=== PATIENT | male | born 1965 | race Two or more races ===

== ENCOUNTER 2018-05-15 11:00 | Outpatient (CLI) | payer OTHER ==
[2018-05-15 12:14] LABS: FOLATE 21.13 ng/mL (5.90 - >24.8)
== END 2018-05-15 11:01 | disposition home or self-care (01) ==
LOC: LAB 11:00
PROVIDERS: ATTEND Internal Medicine
DX: R53.83 Other fatigue (principal); N52.9 Male erectile dysfunction, unspecified; D50.9 Iron deficiency anemia, unspecified
CPT/HCPCS: 36415; 81599; 82607; 82627; 82746; 82977

== ENCOUNTER 2018-05-17 08:01 | Outpatient (CLI) | payer OTHER | END 2018-05-17 08:02 | disposition home or self-care (01) | LOC: LAB 08:01 | PROVIDERS: ATTEND Internal Medicine | DX: R53.83 Other fatigue (principal); N52.9 Male erectile dysfunction, unspecified; D50.9 Iron deficiency anemia, unspecified | CPT/HCPCS: 36415; 82533 ==

== ENCOUNTER 2018-05-29 10:00 | Outpatient (CLI) | payer OTHER ==
--- NOTE | 2018-05-29 13:16 | CARDIAC PROCEDURE NOTE ---
author redictated complete report - incomplete dictation here should not have been subbed. canceled 05/29/18 1:33pm [facility] DATE OF SERVICE: 05/29/2018 Physician: Luisa Gonzalez MD PROCEDURE: Exercise Cardiolite. PROTOCOL: Ty. TIME: 11 minutes. METS: 13.48. BLOOD PRESSURE RESPONSE: Resting 120/70 to maximum 170/66. HEART RATE RESPONSE: Dictation ends here TD: 05/29/2018 13:08 [facility]
--- NOTE | 2018-05-29 13:19 | CARDIAC PROCEDURE NOTE ---
DATE OF SERVICE: 05/29/2018 Physician: Luisa Gonzalez MD PROCEDURE: Exercise Cardiolite. PROTOCOL: Ty. TIME: 11 minutes 1 second. METS: 13.48. BLOOD PRESSURE RESPONSE: 120/70 at rest to maximum 170/66. HEART RATE RESPONSE: Rest at 55 to maximum 162, which was 97% of the maximum predicted. REASON FOR STOPPING TEST: The patient had exceeded the target heart rate and had exercised for 1 min agdaagux after injection. He said he could have kept going. SYMPTOMS: None. ST-SEGMENT RESPONSE: No significant ST elevations or depressions. ARRHYTHMIAS: Occasional PVC. IMPRESSION: No symptoms. No significant EKG changes. CONCLUSION: Await Cardiolite portion of test. TD: 05/29/2018 13:10
--- NOTE | 2018-05-29 16:40 | Nuclear Medicine Report ---
Reason: CHEST PAIN Procedure Date: 05/29/2018 Accession Number: [id number] / [id number] Procedure: NM - Myocardial Perfusion STR/RST CPT Code: FULL RESULT: EXAM: SINGLE-ISOTOPE EXERCISE STRESS TEST. SINGLE-ISOTOPE AND ONE-DAY REST/STRESS MYOCARDIAL PERFUSION SCANS WITH TOMOGRAPHIC IMAGING, QUANTITATIVE ANALYSIS, WALL MOTION ANALYSIS AND CALCULATION OF EJECTION FRACTION. EXAM DATE: 05/29/2018 02:09 PM. CLINICAL HISTORY: CHEST PAIN. COMPARISON: None. TECHNIQUE: A rest myocardial perfusion scan was done with tomography after the intravenous administration of 10.8 mCi Tc-99m sestamibi. After an appropriate delay, a treadmill exercise stress was performed according to department protocol. The patient exercised for 11 minutes and 1 seconds. The maximum heart rate was 162 bpm, which was 97% of the maximum predicted heart rate of 167 bpm. At approximately peak heart rate, 43.0 mCi of Tc-99m sestamibi was injected for stress myocardial perfusion scan. Motion correction was applied when appropriate. Gated tomographic images were obtained for wall motion analysis and computation of left ventricular ejection fraction. FINDINGS: Perfusion images: Left ventricular chamber size appears normal at rest and unchanged at stress. There is a moderate size, mild to moderate severity perfusion deficit involving the apical half of the anteroseptal wall and apical aspect of the anterior wall which appears largely fixed. There is an apparent small area of mild reversibility at the mid anteroseptal wall. No other convincing reversible perfusion deficits. SSS 6, SRS 4, SDS 2. Gated images: No convincing focal wall motion abnormality. Calculated left ventricular EDV 92 mL, ESV 20 mL. The left ventricular ejection fraction is estimated at 79% (normal > 50%). IMPRESSION: 1. Moderate size, mild to moderate severity apical half anteroseptal wall perfusion deficit appears largely fixed. There is an apparent small area of mild reversibility at the mid anteroseptal wall that may reflect stress-induced ischemia. 2. Left ventricular ejection fraction of 79% (normal > 50%). RADIA
== END 2018-05-29 10:01 | disposition home or self-care (01) ==
LOC: DI 10:00
PROVIDERS: ATTEND Nurse Practitioner Family
DX: R07.9 Chest pain, unspecified (principal)
CPT/HCPCS: 78452; 93017; A9500

== ENCOUNTER 2019-12-26 07:05 | Emergency (ER) | payer OTHER ==
[2019-12-26 07:23] VITALS: BP 127/84
--- NOTE | 2019-12-26 07:33 | ED Physician Documentation ---
PD HPI ABD PAIN - Stated complaint Stated Complaint: BACK PX/UPPER ABD PX - Chief complaint Chief Complaint: Abd Pain - History obtained from History obtained from: Patient - Additional information Additional information: 54-year-old gentleman developed a backache in the center of the back last night which subsequently radiated to the epigastrium. This been going on for about 10 hours. He is never had it before. There is no associated nausea, difficulty urinating, fever, or changes in bowel movements. He did have a normal bowel movement after the onset of pain which did not change anything. No history of abdominal surgeries. He was seen in the clinic yesterday for what he thought was a high blood pressure but presume the final diagnosis was anxiety because he was prescribed hydroxyzine. Review of Systems Ten Systems: 10 systems reviewed and negative Constitutional: denies: Fever, Chills Cardiac: denies: Chest pain / pressure, Palpitations Respiratory: denies: Dyspnea, Cough GI: reports: Abdominal Pain. denies: Nausea, Vomiting, Constipation, Diarrhea PD PAST MEDICAL HISTORY - Past Medical History Past Medical History: Yes Cardiovascular: None Respiratory: None Neuro: None Endocrine/Autoimmune: None GI: None : None HEENT: None Psych: None Musculoskeletal: None Derm: None - Past Surgical History Past Surgical History: Yes - Present Medications Home Medications: Ambulatory Orders Medication Instructions Recorded Confirmed Hydrocodone/Acetaminophen 1 - 2 tab PO Q6H PRN #15 tablet 12/26/19 [Hydrocodone-Acetamin 5-325 mg] hydrOXYzine pamoate [Hydroxyzine 0 mg QPM 12/26/19 12/26/19 Pamoate] - Allergies Allergies/Adverse Reactions: Allergies Allergy/AdvReac Type Severity Reaction Status Date / Time No Known Drug Allergies Allergy Verified 12/26/19 07:22 - Social History Does the pt smoke?: No Smoking Status: Never smoker Does the pt drink ETOH?: No - POLST Patient has POLST: No PD ED PE NORMAL - Vitals Vital signs reviewed: Yes - General General: Alert and oriented X 3, No acute distress - HEENT HEENT: PERRL, EOMI - Neck Neck: Supple, no meningeal sign, No bony TTP - Cardiac Cardiac: RRR, No murmur - Respiratory Respiratory: No respiratory distress, Clear bilaterally - Abdomen Abdomen: Soft, Non tender, Other (hyperactive bowel tones) - Back Back: No CVA TTP, No spinal TTP - Derm Derm: Normal color, Warm and dry - Extremities Extremities: No edema, No calf tenderness / cord - Neuro Neuro: Alert and oriented X 3, Normal speech Results - Vitals Vitals: Vital Signs - 24 hr 12/26/19 07:11 Temperature 36 C L Heart Rate 67 Respiratory 16 Rate Blood Pressure 127/84 H O2 Saturation 100 Oxygen O2 Source Room air - EKG (time done) 0858 Rate: Rate (enter#) (54) Rhythm: NSR Otter: Normal Intervals: Normal [facility] QRS: Normal Ischemia: Normal ST segments Computer interpretation: Agree with computer - Labs Labs: Laboratory Tests 12/26/19 12/26/19 12/26/19 07:45 07:45 07:45 WBC 7.5 RBC 5.07 Hgb 16.5 Hct 46.4 MCV 91.5 MCH 32.5 H MCHC 35.6 RDW 12.2 Plt Count 183 MPV 10.3 Neut # (Auto) 6.4 Lymph # (Auto) 0.7 L Crisp # (Auto) 0.3 Eos # (Auto) 0.0 Baso # (Auto) 0.0 Absolute Nucleated RBC 0.00 Nucleated RBC % 0.0 Sodium 135 Potassium 4.2 Chloride 100 L Carbon Dioxide 26 Anion Gap 9.0 BUN 14 Creatinine 0.9 Estimated GFR (MDRD) 88 L Glucose 123 H Calcium 8.8 Total Bilirubin 1.1 H AST 19 ALT 27 Alkaline Phosphatase 83 Troponin I High Sens 2.8 Total Protein 7.3 Albumin 4.6 Globulin 2.7 Albumin/Globulin Ratio 1.7 Lipase 22 - Rads (name of study) CTA Abd Radiology: EMP read contemporaneously (Normal vasculature, nonspecific gallbladder distention) Abd sono Radiology: EMP read contemporaneously (Multiple mobile gallstones without cholecystitis, no ductal dilation) PD MEDICAL DECISION MAKING - ED course ED course: 54-year-old gentleman with upper abdominal pain radiating to the back, n ontender. Differential diagnosis includes dissection, ruled out on CT angiogram. ACS atypical, EKG and troponin are negative, biliary colic, ruled in with imaging. No evidence of cholecystitis. Offered surgical referral here, but he is [place] only with service connections and [facility] Departure - Departure Disposition: 01 Home, Self Care Clinical Impression: Biliary colic Abdominal pain Qualifiers: Abdominal location: epigastric Qualified Code(s): R10.13 - Epigastric pain Condition: Good Record reviewed to determine appropriate education?: Yes Instructions: ED Gallstone W Biliary Colic Prescriptions: Hydrocodone/Acetaminophen [Hydrocodone-Acetamin 5-325 mg] 1 - 2 tab PO Q6H PRN #15 tablet PRN Reason: Pain Comments: Follow-up with your primary care physician as soon as possible for a surgical referral for your gallbladder. You do have multiple gallstones but no evidence of an infected gallbladder currently. Return if worsening. Discharge Date/Time: 12/26/19 10:21
[2019-12-26] MEDS ORDERED: LIDOCAINE VISCOUS 2% 15 ML UDC MM STA (07:37)
[2019-12-26] MEDS ORDERED: MAG HYDROX/AL HYDROX/SIMETH 30 ML UDC PO STA (07:37)
[2019-12-26] MEDS ORDERED: IOVERSOL 320 100 ML VIAL IVP ONE ×2 (07:50→19:15)
[2019-12-26 08:00] LABS: BASOPHILS % (AUTO) 0.4 %; EOSINOPHILS % (AUTO) 0.1 %; HGB - HEMOGLOBIN 16.5 g/dL (14.0-18.0); LYMPHOCYTES # (AUTO) 0.7 10^3/uL (1.5-3.5); LYMPHOCYTES % (AUTO) 9.1 %; MEAN CORPUSCULAR HEMOGLOBIN 32.5 pg (27.0-31.0); MEAN CORPUSCULAR HGB CONC 35.6 g/dL (32.0-36.0); MEAN CORPUSCULAR VOLUME 91.5 fL (80.0-94.0); MEAN PLATELET VOLUME 10.3 fL (7.4-11.4); MONOCYTES # (AUTO) 0.3 10^3/uL (0.0-1.0); MONOCYTES % (AUTO) 4.4 %; NEUTROPHILS # (AUTO) 6.4 10^3/uL (1.5-6.6); NEUTROPHILS % (AUTO) 85.7 %; PLT - PLATELET COUNT 183 10^3/uL (130-450); RED BLOOD COUNT 5.07 10^6/uL (4.70-6.10); RED CELL DISTRIBUTION WIDTH 12.2 % (12.0-15.0); WHITE BLOOD COUNT 7.5 x10^3/uL (4.8-10.8)
[2019-12-26 08:14] LABS: ALBUMIN 4.6 g/dL (3.2-5.5); ALBUMIN/GLOBULIN RATIO 1.7 (1.0-2.2); BILIRUBIN,TOTAL 1.1 mg/dL (0.2-1.0); CALCIUM 8.8 mg/dL (8.5-10.3); CREATININE 0.9 mg/dL (0.6-1.2); TOTAL PROTEIN 7.3 g/dL (6.7-8.2)
[2019-12-26] MEDS ORDERED: KETOROLAC 30 MG/ML VIAL IVP STA (08:40)
--- NOTE | 2019-12-26 08:59 | CT Report ---
PROCEDURE: ANGIO ABDOMEN/PELVIS W INDICATIONS: back/upper abd pain CONTRAST: IV CONTRAST: Optiray 320 ml: 100 PO CONTRAST: *NO PO CONTRAST TECHNIQUE: After the administration of intravenous contrast, 2 and 5 mm sections acquired from the diaphragm to the iliac crests. 3-dimensional maximum intensity projection (MIP) coronal and sagittal reformats, a nd/or 3-dimensional volume rendering reformatting was then performed. For radiation dose reduction, the following was used: automated exposure control, adjustment of mA and/or kV according to patient size. COMPARISON: None FINDINGS: Image quality: Excellent. Extravascular tissues: Lung bases are clear. Heart size is normal. Liver and spleen are normal in size and enhancement. Gallbladder is distended. No gallbladder wall thickening. No fluid around the gallbladder. Biliary system is non dilated. Pancreas enhances normally. No adrenal nodules. Kidne ys are normal in size and enhancement, without hydronephrosis. Non-opacified bowel loops demonstrate normal wall thickness and caliber. No free fluid or air. No retroperitoneal or mesenteric adenopat hy. No ventral hernias. No suspicious bony abnormalities. No vertebral body compression fractures. Abdominal aorta: Normal caliber. No dissection. No stenosis. No significant atherosclerotic change. Mesenteric arteries: SMA, celiac, and CARROLL are widely patent. Renal arteries: Widely patent. IMPRESSION: 1. Normal caliber aorta without dissection or aneurysm. 2. Widely patent mesenteric vessels. 3. Nonspecific gallbladder distention without gallbladder wall thickening or fluid around the gallbla dder. 4. Otherwise unremarkable study. Reviewed by: Lasha Oconnor MD on 12/26/2019 8:58 AM PDT Approved by: Lasha Oconnor MD on 12/26/2019 8:58 AM PDT Station ID: [id number]
--- NOTE | 2019-12-26 10:13 | Ultrasound Report ---
PROCEDURE: Abdomen Limited INDICATIONS: epigastric pain, large GB on CT TECHNIQUE: Real-time scanning was performed of the abdominal and retroperitoneal organs, with image documentatio n. COMPARISON: CT angiogram abdomen and pelvis earlier today. FINDINGS: Liver: Within normal limits in size. Echogenicity is within normal limits. Portal vein demonstrates e xpected hepatopedal flow. Gallbladder: Gallbladder is not significantly distended. Multiple mobile gallstones are seen. Larger gallstone measuring 2.7 x 1.7 x 1 cm.. No gallbladder wall thickening. No pericholecystic fluid. Nega tive sonographic Muller sign. Biliary ducts: Intrahepatic bile ducts are non-dilated. Extrahepatic bile duct caliber measures 4 m m. Normal is 6-7 mm or less in diameter, or 10 mm or less post-cholecystectomy. Pancreas: Obscured by bowel gas. Right kidney: Measures 10.2 cm in length. Cortex 1.2 cm. No hydronephrosis. Aorta: Obscured. IVC: Patent. Miscellaneous: No free abdominal fluid. IMPRESSION: 1. Multiple mobile gallstones. 2. No acute cholecystitis demonstrated. 3. No biliary ductal dilatation. Reviewed by: Ricardo Jimenez MD on 12/26/2019 10:12 AM PDT Approved by: Ricardo Jimenez MD on 12/26/2019 10:12 AM PDT Station ID: [id number]
== END 2019-12-26 10:21 | disposition home or self-care (01) ==
LOC: ED 07:05
DX: K80.50 Calculus of bile duct without cholangitis or cholecystitis without obstruction (principal)
CPT/HCPCS: 36415; 74174; 76705; 80053; 83690; 84484; 85025; 93005; 96374; 99284; A9270; Q9967